=== PATIENT | female | born 1960 | race Two or more races ===

== ENCOUNTER 2018-05-26 05:28 | Day surgery (SDC) | payer OTHER ==
[~2018-05-26 05:28] MED LIST: ALBUTEROL; GLUMETZA500 MG PO; HYDROCHLORIZIDE PO; IBERSARTAN PO; NIFE60TA3 PO; PRILOSEC OTC20 MG PO
== END 2018-05-26 14:10 | disposition home or self-care (01) ==
LOC: CIR.AMB 05:28
DX: K62.0 Anal polyp (principal); K64.8 Other hemorrhoids; K64.4 Residual hemorrhoidal skin tags